=== PATIENT | male | born 1955 | race Caucasian/White ===

== ENCOUNTER 2019-05-15 01:19 | Emergency (ER) | payer MEDICAID ==
[~2019-05-15] VITALS: Ht 175.3 cm; Wt 72.6 kg
[2019-05-15 02:10] LABS: Basophils # (auto) 0 uL; Basophils % (auto) 0.4 % (0.0-2.0); Eosinophils # (auto) 0.2 uL; Eosinophils % (auto) 2.2 % (0.0-7.0); Hematocrit 38.5 % (41.0-53.0); Hemoglobin 13.5 g/dL (13.5-17.5); Lymphocytes # (auto) 2.3 uL; Lymphocytes % (auto) 24.9 % (10.0-50.0); Mean Corpuscular Hgb Conc. 34.9 g/dL (32.0-36.0); Mean Corpuscular Volume 94.4 fL (80.0-100.0); Monocytes # (auto) 0.7 uL; Monocytes % (auto) 7.6 % (0.0-12.0); Neutrophils # (auto) 6.1 uL; Neutrophils % (auto) 64.9 % (37.0-80.0); Nucleated Red Blood Cells % 0.1 %; Platelet Count (auto) 197 10^3/uL (140-450); Red Blood Cells 4.08 10^6/uL (4.5-5.90); Red Cell Distribution Width 13.4 % (11.8-14.3); White Blood Cell 9.4 10^3/uL (4.4-10.8)
[2019-05-15 02:27] LABS: INR 1.01 (0.9-1.15); Partial Thromboplastin Time 23.4 sec (23.64-32.05)
[2019-05-15 02:29] LABS: Albumin 3.8 g/dL (3.4-5.0); Anion Gap 14 (5-15); Calcium 8.2 mg/dL (8.5-10.1); Carbon Dioxide 18 mmol/L (21-32); Chloride 105 mmol/L (98-107); Glucose 108 mg/dL (74-106); Sodium 137 mmol/L (136-145)
[2019-05-15] MEDS ORDERED: SODIUM CHLORIDE 0.9% 2,000 ML IV ONE (02:30)
[2019-05-15 02:33] LABS: Alanine Aminotransferase 17 U/L (16-61); Alkaline Phosphatase 76 U/L (45-117); Aspartate Aminotransferase 16 U/L (15-37); BUN/Creatinine Ratio 9.7; Bilirubin, Total 0.2 mg/dL (0.2-1.0); Blood Urea Nitrogen 13 mg/dL (7-18); GFR African American 69 mL/min; GFR Non-African American 57 mL/min; Total Protein 6.5 g/dL (6.4-8.2)
[2019-05-15 02:35] LABS: Potassium 2.9 mmol/L (3.5-5.1)
[2019-05-15] MEDS ORDERED: POTASSIUM CHL 20MEQ/100ML 100 ML IV ONE (03:00)
[2019-05-15] MEDS ORDERED: SODIUM CHLORIDE 0.9% 1,000 ML IV ONE (03:30)
[2019-05-15 04:54] LABS: Urine Bacteria FEW /hpf (None Seen); Urine Blood Negative /uL (Negative); Urine Hyaline Cast MANY /lpf (0 - 2); Urine Specific Gravity 1.009 (1.001-1.035); Urine WBC 1 /hpf (0 - 3)
[2019-05-15 05:02] LABS: Amphetamine Screen, Urine NEGATIVE (NEGATIVE); Barbiturate Scree,Urine NEGATIVE (NEGATIVE); Cannabinoid Screen, Urine POSITIVE (NEGATIVE); Cocaine Screen, Urine NEGATIVE (NEGATIVE); Opiate Scree,Urine NEGATIVE (NEGATIVE); Phencyclidine Screen, Urine NEGATIVE (NEGATIVE)
[2019-05-15 05:07] LABS: Benzodiazephine Screen, Urine NEGATIVE (NEGATIVE)
[2019-05-15] MEDS ORDERED: LIDOCAINE W/ EPINEPHRINE 1% 20ML VIAL ONE (05:56)
[2019-05-15] MEDS ORDERED: LIDOCAINE W/ EPINEPHRINE 1% 20ML VIAL ID ONE (06:15)
[2019-05-15 06:21] VITALS: BP 129/75
== END 2019-05-15 06:36 | disposition home or self-care (01) ==
LOC: EDBD 01:19 → ER 01:21
DX: S01.01XA Laceration without foreign body of scalp, initial encounter (principal); F10.129 Alcohol abuse with intoxication, unspecified; F17.210 Nicotine dependence, cigarettes, uncomplicated; Z88.0 Allergy status to penicillin; W01.198A Fall on same level from slipping, tripping and stumbling with subsequent striking against other object, initial encounter; Y93.89 Activity, other specified; Y92.89 Other specified places as the place of occurrence of the external cause; Y99.8 Other external cause status; Y90.7 Blood alcohol level of 200-239 mg/100 ml
CPT/HCPCS: 12002; 36415; 70450; 71045; 72125; 80053; 80307; 81001; 84484; 85025; 85610; 85730; 93005; 96360; 96361; 99284; J3480; J7030

== ENCOUNTER 2019-05-23 11:18 | Emergency (ER) | payer MEDICAID ==
[~2019-05-23] VITALS: Ht 175.3 cm; Wt 74.8 kg
[2019-05-23 12:59] VITALS: BP 110/79
== END 2019-05-23 13:23 | disposition home or self-care (01) ==
LOC: ER 11:19
DX: S01.01XD Laceration without foreign body of scalp, subsequent encounter (principal); I10 Essential (primary) hypertension; E78.5 Hyperlipidemia, unspecified; F12.90 Cannabis use, unspecified, uncomplicated; F17.210 Nicotine dependence, cigarettes, uncomplicated; X58.XXXD Exposure to other specified factors, subsequent encounter; Z88.0 Allergy status to penicillin